=== PATIENT | female | born 1945 | race Caucasian/White ===

== ENCOUNTER 2016-12-12 15:40 | Emergency (ER) | payer MEDICARE, OTHER ==
[~2016-12-12] VITALS: Ht 160 cm; Wt 69.0 kg
[2016-12-12 15:53] VITALS: BP 173/90; PULSE 69; RESP 16; TEMP 98.7; O2SAT 98
[2016-12-12] MEDS ORDERED: BENA40TA PO (16:16)
[2016-12-12] MEDS ORDERED: HYDR25TA5 PO (16:17)
[2016-12-12] MEDS ORDERED: AMLO5TAB2 PO (16:17)
[2016-12-12] MEDS ORDERED: LEVO75TA3 PO (16:18)
[2016-12-12] MEDS ORDERED: TRAM50TA PO ×2 (16:18→16:19)
[2016-12-12] MEDS ORDERED: CLON1TAB PO (16:19)
[2016-12-12] MEDS ORDERED: SYMB160A INH (16:22)
[2016-12-12] MEDS ORDERED: LYRI75CA PO (16:23)
[2016-12-12 16:24] VITALS: BP 173/90; PULSE 69; RESP 16; TEMP 98.1; O2SAT 98
--- NOTE | 2016-12-12 16:29 | PD ---
HPI Chief Complaint: Fall Time Seen by Provider: 16:07 Travel History International Travel<30 days: No Contact w/Intl Traveler<30days: No Traveled to known affect area: No History of Present Illness HPI The patient is a 71-year-old female who presents to the emergency department for urgent care for evaluation of headache and right periorbital edema after a mechanical fall. The patient states she tripped and fell earlier today, landing on her knees, her palms, and striking her head against the ground. The patient does complain of superficial abrasions to the knees and palms, but states she is able to ambulate without difficulty. She denies any difficulty using the upper or lower extremities. The patient also complains of right sided headache after the mechanical fall with some bruising above the right eye. The patient denies any associated nausea, vomiting, or neck pain. She denies any acute visual changes. She denies taking any anticoagulants. She also complains of mild low back pain, but states she has a history of multiple back surgeries and is currently on tramadol and Klonopin for chronic pain. The patient's symptoms are mild to moderate, exacerbated after falling, and there are no current alleviating factors. The patient states her tetanus shot is up-to-date. PFSH Past Medical History Anxiety: Yes Thyroid Disease: Yes Tetanus Vaccination: < 5 Years Influenza Vaccination: Yes Past Surgical History Narrative Surgical Neck surgery, back surgery, partial thyroidectomy Social History Alcohol Use: No Tobacco Use: No Substance Use: No Allergies-Medications (Allergen,Severity, Reaction): Coded Allergies: adhesive tape (Verified Allergy, Intermediate, 12/12/16) oxycodone (Verified Allergy, Intermediate, Hallucinations, 12/12/16) Reported Meds & Prescriptions Reported Meds & Active Scripts Active Reported Lyrica (Pregabalin) 75 Mg Cap 75 Mg PO TID Symbicort Inh (Budesonide/Formoterol Fumarate) 160-4.5 Mcg/Act Aero 1 Puff INH Q12HR Clonazepam 1 Mg Tab 1 Mg PO BID Tramadol (Tramadol HCl) 50 Mg Tab 50 Mg PO Q4H PRN Tramadol (Tramadol HCl) 50 Mg Tab 50 Mg PO Q4H PRN Levothyroxine (Levothyroxine Sodium) 75 Mcg Tab 75 Mcg PO DAILY Hydrochlorothiazide 25 Mg Tab 25 Mg PO DAILY Amlodipine (Amlodipine Besylate) 5 Mg Tab 5 Mg PO DAILY Benazepril (Benazepril HCl) 40 Mg Tab 40 Mg PO DAILY Review of Systems Except as stated in HPI: all other systems reviewed are Neg Eyes: No: Visual changes HENT: Positive: Headaches, No: Neck Pain Cardiovascular: No: Chest Pain or Discomfort, Syncope Respiratory: No: Shortness of Breath Gastrointestinal: No: Nausea, Vomiting Musculoskeletal: No: Limited ROM, Weakness Skin: Positive Other (abrasions) Neurologic: Positive: Headache, No: Change in Mentation, Paresthesia, Sensory Disturbance Physical Exam Narrative GENERAL: Awake, alert, pleasant 71-year-old female who appears her stated age and is in no acute respiratory distress. SKIN: Focused skin assessment warm/dry. Superficial abrasions to the palms and knees bilaterally with no active bleeding. HEAD: Ecchymosis and mild edema noted superior to the right eye and the right periorbital region. EYES: Pupils equal and round. Pupils are 3 mm bilateral and reactive. EOMs are intact. Patient is able to see fingers at a distance of 2 feet without difficulty. ENT: No nasal bleeding or discharge. Mucous membranes pink and moist. NECK: Trachea midline. No JVD. Well-healed scar of the cervical region with no tenderness. CARDIOVASCULAR: Regular rate and rhythm. No murmur appreciated. RESPIRATORY: No accessory muscle use. Clear to auscultation. Breath sounds equal bilaterally. GASTROINTESTINAL: Abdomen soft, non-tender, nondistended. No rebound tenderness. Back: Well-healed midline surgical scar. No obvious deformity. No tenderness upon palpation. MUSCULOSKELETAL: No obvious deformities. No clubbing. No cyanosis. No edema. NEUROLOGICAL: Awake and alert. No obvious cranial nerve deficits. Motor grossly within normal limits. Normal speech. Patient moves all 4 extremities without difficulty. Nonfocal. Alert and oriented 4. PSYCHIATRIC: Appropriate mood and affect; insight and judgment normal. Data Data Last Documented VS Vital Signs Date Time Temp Pulse Resp B/P (MAP) Pulse Ox O2 Delivery O2 Flow Rate FiO2 12/12/16 16:24 98.1 69 16 173/90 (117) 98 12/12/16 16:09 Room Air Orders Orders Ct Brain W/O Iv Contrast(Rout) (12/12/16 ) Ct Facial Bones W/O Iv Cont (12/12/16 ) Spine, Lumbar - Ltd (Ap & Lat) (12/12/16 ) Acetaminophen (Tylenol) (12/12/16 16:30) MDM Medical Decision Making Medical Screen Exam Complete: Yes Emergency Medical Condition: Yes Medical Record Reviewed: Yes Interpretation(s) X-ray lumbar spine reveals under mineralized bones with scoliosis. No acute lumbar spine abnormality is identified. There has been prior laminectomy and posterior spinal fixation of L4-S1. CT of the head reveals no acute intracranial abnormality is identified. CT facial bones without contrast reveals no maxillofacial fracture is identified. Differential Diagnosis Differential diagnosis includes closed head injury, intracranial hemorrhage, subarachnoid hemorrhage, orbital fracture, back strain, vertebral fracture, abrasion, contusion, hematoma. Narrative Course CT of the brain and facial bones was obtained. X-ray of the lumbar spine was obtained. The patient was administered Tylenol 650 mg orally for pain. X-ray lumbar spine reveals postoperative changes but no acute fracture. CT the brain is negative for intracranial hemorrhage. CT of the facial bones is negative for fracture. The patient has a closed head injury with facial contusion and low back strain. The patient is advised to continue taking her tramadol as previously directed. Ice to the contusion on the face for the next 48 hours. Ice and/or heat to the low back as needed. She will be provided a copy of her x -ray results and CT results and is advised to follow-up with her primary physician. Return if symptoms worsen or progress. Diagnosis Primary Impression: Closed head injury Qualified Codes: S09.90XA - Unspecified injury of head, initial encounter Additional Impressions: Facial contusion Qualified Codes: S00.83XA - Contusion of other part of head, initial encounter Back pain Qualified Codes: M54.5 - Low back pain; G89.29 - Other chronic pain Patient Instructions: General Instructions Additional Instructions: Continue tramadol as previously directed. Please provide the patient a copy of her CT results and x-ray results at discharge. Follow-up with your primary physician. Ice to the right facial contusion and ice and/or heat to the low back as needed. Return if symptoms worsen or progress. Med/Other Pt SpecificInfo: No Change to Meds Disposition: 01 DISCHARGE HOME Condition: Stable German Emmanuel MD Dec 12, 2016 16:29
[2016-12-12] MEDS ORDERED: ACETAMINOPHEN 325 MG TAB PO ONE (16:30)
--- NOTE | 2016-12-12 17:05 | RADRPT ---
EXAM DATE/TIME: 12/12/2016 16:34 [facility] COMPARISON: No previous studies available for comparison. INDICATIONS : Fall today. MEDICAL HISTORY : None. SURGICAL HISTORY : None. ENCOUNTER: Initial ACUITY: 1 day PAIN SCORE: 8/10 LOCATION: Bilateral Lower back FINDINGS: 3 views of the lumbar spine demonstrate undermineralized bones with scoliosis of the lumbar spine. Th ere are bilateral pedicular screws and stabilization hardware extending from L4-S1. Hardware demonstr ates no finding to indicate loosening or failure. There is severe decreased disc height at L1-L2 with endplate sclerosis and osteophytes. Decreased disc height is also present at L4-L5 and L5-S1. No ant erolisthesis is present at L4-L5. There has likely been prior laminectomy at L4-L5 and L5-S1. Visualized surrounding structures demonstrate no acute finding. CONCLUSION: 1. Undermineralized bones with scoliosis. No acute lumbar spine abnormality is identified. 2. There has been prior laminectomy and posterior spinal fixation of L4-S1. Latrell Gutiérrez MD on December 12, 2016 at 17:02 Board Certified Radiologist. This report was verified electronically.
--- NOTE | 2016-12-12 17:07 | RADRPT ---
EXAM DATE/TIME: 12/12/2016 16:34 [facility] COMPARISON: No previous studies available for comparison. INDICATIONS : Trauma. Trip and fall. RADIATION DOSE: 66.14 CTDIvol (mGy) MEDICAL HISTORY : None SURGICAL HISTORY : Fusion, cervical. ENCOUNTER: Initial ACUITY: 1 day PAIN SCALE: 4/10 LOCATION: cranial TECHNIQUE: Multiple contiguous axial images were obtained of the head. Using automated exposure control and adj ustment of the mA and/or kV according to patient size, radiation dose was kept as low as reasonably a chievable to obtain optimal diagnostic quality images. DICOM format image data is available electro nically for review and comparison. FINDINGS: CEREBRUM: The ventricles are normal. There is mild periventricular white matter low attenuation. No evidence o f midline shift, mass lesion, hemorrhage or acute infarction. No extra-axial fluid collections are s een. POSTERIOR FOSSA: The cerebellum and brainstem demonstrate no acute finding. The 4th ventricle is midline. The cerebe llopontine angle is unremarkable. EXTRACRANIAL: Visualized sinuses are clear. SKULL: The calvaria is intact. No evidence of skull fracture. CONCLUSION: No acute intracranial abnormality is identified. Latrell Gutiérrez MD on December 12, 2016 at 17:03 Board Certified Radiologist. This report was verified electronically.
--- NOTE | 2016-12-12 17:10 | RADRPT ---
EXAM DATE/TIME: 12/12/2016 16:34 [facility] COMPARISON: No previous studies available for comparison. INDICATIONS : Trauma. Trip and fall. Right periorbital bruising. RADIATION DOSE: 34.85 CTDIvol (mGy) MEDICAL HISTORY : None SURGICAL HISTORY : Spinal fusion. ENCOUNTER: Initial ACUITY: 1 day PAIN SCORE: 3/10 LOCATION: Right facial TECHNIQUE: Volumetric scanning of the facial bones was performed. Using automated exposure control and adjustme nt of the mA and/or kV according to patient size, radiation dose was kept as low as reasonably achiev able to obtain optimal diagnostic quality images. DICOM format image data is available [employer] y for review and comparison. FINDINGS: ORBITS: The orbital structures are intact. The retroconal structures have a normal configuration. No radiop aque foreign bodies are seen. The lenses are normally located. NASAL BONE: The nasal bones and maxillary spine are intact. ZYGOMATIC ARCHES: Symmetric without evidence of fracture. SINUSES: The maxillary, ethmoid, and frontal sinuses are clear. No air-fluid levels seen. NASAL CAVITY: The nasal septum is mildly deviated to the right with a left conchal bullosa. The lacrimal ducts are intact. SOFT TISSUES: No radiopaque foreign bodies seen. No soft-tissue swelling is seen. INTRACRANIAL: No acute intracranial abnormality is seen. OTHER: The mandible and pterygoid plates are intact. CONCLUSION: No maxillofacial fracture is identified. Latrell Gutiérrez MD on December 12, 2016 at 17:05 Board Certified Radiologist. This report was verified electronically.
== END 2016-12-12 17:58 | disposition home or self-care (01) ==
LOC: PHED 15:40
DX: S00.83XA Contusion of other part of head, initial encounter (principal); M54.5 Low back pain; G89.29 Other chronic pain; W01.0XXA Fall on same level from slipping, tripping and stumbling without subsequent striking against object, initial encounter
CPT/HCPCS: 70450; 70486; 72100; 99285